=== PATIENT | male | born 1970 | race Caucasian/White ===

== ENCOUNTER 2018-01-31 00:22 | Day surgery (SDC) | payer OTHER ==
[~2018-01-31] VITALS: Ht 188 cm; Wt 101.6 kg
[~2018-01-31 00:22] MED LIST: CYC10 PO; CYCL10TA29 PO; GLY25 PO; HYDR-4309 PO; IBU800 PO; LISI20TA29 PO; LOR5/325 PO; METF-420 PO; METH-280 PO; METXR500 PO; MULT1CAP59 PO; NAPR500T31 PO; OXYC-865 PO; PER PO; PIOG45TA3 PO; PRED20TA6 PO
[2018-01-31] MEDS ORDERED: fentaNYL CITR 100 MCG/2 ML AMP ONE ×2 (07:51)
[2018-01-31] MEDS ORDERED: MIDAZOLAM 2 MG/2 ML VIAL ONE (07:51)
[2018-01-31] MEDS ORDERED: PROPOFOL EMUL(*) 10MG/ML 20 ML 20 ML ONE (07:51)
[2018-01-31 08:00] VITALS: BP 177/112
[2018-01-31] MEDS ORDERED: NORMOSOL R SOLN(*) 1000 ML BAG 1,000 ML IV PRN (08:00)
[2018-01-31] MEDS ORDERED: LIDOCAINE/SOD BICARB 8.4% SYR ID ONE (08:00)
--- NOTE | 2018-01-31 08:18 | EKG ---
[place] [facility] [place] RAPHAEL GARCES : [id number] MR: [id number] V: [id number] EXAM DATE: ORDERING PHYSICIAN: MARIA M GRIDER TECHNOLOGIST: LENNOX Villalta Reason : PRE-OP Blood Pressure : / mmHG Vent. Rate : 073 BPM Atrial Rate : 073 BPM P-R Int : 164 ms QRS Dur : 088 ms QT Int : 382 ms P-R-T Axes : 051 057 042 degrees QTc Int : 420 ms Normal sinus rhythm Normal ECG No previous ECGs available Confirmed by PATRICIA CLEMENTE ([id number]) on 01/31/2018 10:25:57 AM Referred By: HEIDY Confirmed By:PATRICIA CLEMENTE
[2018-01-31] MEDS ORDERED: GADOBENATE 529MG/1ML 15ML VIAL IVP ONE (09:32)
[2018-01-31 10:28] VITALS: BP 162/108
[2018-01-31 10:45] VITALS: BP 153/96
[2018-01-31 11:15] VITALS: BP 144/89
[2018-01-31 11:30] VITALS: BP 141/92
[2018-01-31 11:33] VITALS: BP 150/100
--- NOTE | 2018-01-31 14:16 | RADIOLOGY IMAGING REPORT ---
FACILITY: [facility] PATIENT NAME: Hair Dodson : 1970 MR: [id number] V: [id number] EXAM DATE: ORDERING PHYSICIAN: RAVI MOODY TECHNOLOGIST: Location: [facility] - [place] Patient: Hair Dodson : 1970 Visit/Account:[id number] Date of Sevice: 01/31/2018 L SPINE W W/O CONTRAST EXAMINATION: Lumbar spine MRI without IV contrast Lumbar spine MRI with IV contrast History: Low back pain COMPARISON STUDIES: 06/19/2013 TECHNIQUE: Multi-planar, multi-sequence lumbar spine MRI was performed before and after IV contrast. Contrast: 15 mL of IV MultiHance FINDINGS: Paraspinal soft tissues negative. Vertebral bodies have normal height and alignment. Marrow signal intensity appears benign. Desiccation of the intervertebral discs. Loss of disc space height has pr ogressed at L4-5 and L5-S1. Visualized thoracic cord and conus appear normal. There is reactive mar row edema adjacent to the L4-5 and L5-S1 endplates. L1-L2: Negative. L2-L3: Progression of a broad-based disc bulge which does not significantly narrow the central canal. No significant foraminal stenosis. L3-4: Broad-based disc bulge and facet hypertrophy mildly narrow the central canal. The disc bulge m ildly progressed. No significant foraminal stenosis. L4-L5: Broad-based disc bulge and facet hypertrophy moderately narrow the central canal. Moderate ri ght and mild left foraminal stenosis not significantly changed. L5-S1: Interval left laminotomy and partial discectomy. There is enhancement in the ventral epidural space compatible with scarring. No convincing evidence of recurrent disc herniation. No significan t narrowing of the central canal. Moderate right foraminal stenosis appears stable. Severe left for aminal stenosis has progressed. IMPRESSION: 1. Interval postoperative changes of left laminotomy and partial discectomy at L5-S1. There is enha ncement in the ventral epidural space compatible with scarring. No convincing evidence of recurrent disc herniation. 2. Progression of spondylosis at multiple levels. Please see above for detailed description of each level. Report Dictated By: Crow Foreman MD at 01/31/2018 1:51 PM Report E-Signed By: Crow Foreman MD at 01/31/2018 2:11 PM WSN:[id number]
== END 2018-01-31 11:48 | disposition home or self-care (01) ==
LOC: OR 00:22
PROVIDERS: ATTEND Physician Assistant Medical
DX: M47.9 Spondylosis, unspecified (principal); M54.5 Low back pain; I10 Essential (primary) hypertension
CPT/HCPCS: 36415; 36416; 72158; 82565; 82948; 93005; A9577; J2250; J2704; J3010

== ENCOUNTER → 2018-08-02 | Outpatient (CLI) | payer OTHER ==
[~2018-08-02] MED LIST changes: -HYDR-4309 PO; +HYDR-653 PO; -METF-420 PO; +METF-452 PO; -PIOG45TA3 PO; +PIOG45TA65 PO
--- NOTE | 2018-08-02 19:03 | RADIOLOGY IMAGING REPORT ---
[place] [facility] [place] NAME: Hair Dodson : 1970 MR: [id number] V: [id number] EXAM DATE: ORDERING PHYSICIAN: RAVI MOODY TECHNOLOGIST: Location: [facility] Patient: Hair Dodson : 1970 Visit/Account:[id number] Date of Sevice: 08/02/2018 EXAMINATION: Limited abdominal ultrasound HISTORY: Lump along the left midabdomen at site of insulin injections. COMPARISON: None. FINDINGS: Ultrasound evaluation was performed along the anterior abdominal wall in an area of palpable concern. This is located to the left of the umbilicus. No discrete sonographic abnormality is visualized stefania g the anterior abdominal wall. No visualized soft tissue mass or fluid collection. No ventral hernia is visualized. IMPRESSION: Unremarkable ultrasound evaluation of the anterior abdominal wall. No discrete sonograph ic abnormality in the area of palpable concern. Report Dictated By: Jam Childress MD at 08/02/2018 6:56 PM Report E-Signed By: Jam Childress MD at 08/02/2018 6:59 PM WSN:[id number]
== END ==
LOC: US 01:14
PROVIDERS: ATTEND Physician Assistant Medical
DX: R10.817 Generalized abdominal tenderness (principal)
CPT/HCPCS: 76705